=== PATIENT | male | born 1965 | race Caucasian/White ===

== ENCOUNTER 2023-04-30 12:22 | Outpatient (OUT) | payer OTHER, SELFPAY ==
--- NOTE | 2023-04-30 13:09 | CA_ITS ---
[facility] Test Date: 2023-04-30 Pat Name: JOSH ROB Department: Room: - Gender: Male Trial Paralegal: : 1965 Requested By: DAISY KARIMI Order Number: [id number] Reading MD: JAIME JEFFRIES Interpretive Statements Monophasic doppler waveforms PVR waveforms with delayed upstroke, blunted amplitude and loss of dicrotic notch Right: - significant pressure gradient between the brachial and thigh cuff - abnormal ZACK and TBI Left: - significant pressure gradient between the brachial and thigh cuff - significant pressure gradient between the thigh and calf cuff - abnormal ZACK and TBI Impression: - significant right inflow (femoral artery or above) arterial disease with moderate to severe hemodynamic impairment of the right lower extremity at rest (right ZACK 0.50) - significant left inflow (femoral artery or above) and femoropopliteal arterial disease with moderate to severe hemodynamic impairment of the left lower extremity at rest (left ZACK 0.52) Electronically Signed On 05-01-2023 14:46:43 EDT by JAIME JEFFRIES
== END 2023-04-30 12:23 | disposition home or self-care (01) ==
LOC: CARD 12:22
PROVIDERS: PCP Family Medicine; Visit Provider Family Medicine
DX: Z00.00 Encounter for general adult medical examination without abnormal findings (principal); I73.9 Peripheral vascular disease, unspecified
CPT/HCPCS: 93923

== ENCOUNTER 2023-05-18 09:18 | Outpatient (OUT) | payer OTHER, SELFPAY ==
--- NOTE | 2023-05-18 09:26 | CT_ITS ---
[address] [address] Patient Name: JOSH ROB MRN: [id number] date: 1965 Sex: M Assigned Patient Location: CT Current Patient Location: CT Accession/Order Number: [id number] Exam Date: 05/18/2023 09:37 Report Date: 05/18/2023 11:02 At the request of: DAISY KARIMI Procedure: CT lung screening low-dose EXAMINATION: CT lung screening low-dose HISTORY: Nicotine Dependence F17.210 COMPARISON: No relevant comparison available. TECHNIQUE: Axial, Coronal, and Sagittal images were created without the administration of IV contrast material. Dose reduction techniques were achieved by using automated exposure control and/or adjustment of mA and/or kV according to patient size and/or use of iterative reconstruction technique. FINDINGS: LUNGS: Biapical pleural parenchymal scarring. Mild to moderate centrilobular and paraseptal emphysema with an upper lobe predominance. Few scattered punctate pulmonary nodules measuring 2 mm. Bibasilar linear opacities likely atelectasis PLEURA: No mass, effusion, or pneumothorax. VASCULATURE: No abnormality. OLE: No mass or pathologic adenopathy. MEDIASTINUM: No mass or pathologic adenopathy. CARDIAC: No enlargement, pericardial thickening, or significant calcification. AORTA: No aneurysm or dissection. CHEST WALL: No mass or axillary adenopathy BONES: No bone lesion or fracture. LIMITED ABDOMEN: Surgical clips from cholecystectomy OTHER: Negative. CT/CT lung screening low-dose IMPRESSION: Mild to moderate emphysema with biapical pleural parenchymal scarring and scattered punctate pulmonary nodules LUNG SCREENING: Lung-RADS Category 2- Benign Appearance or Behavior. Nodules with a very low likelihood of becoming a clinically active cancer due to size or lack of growth. 2. Continue annual screening with LDCT in 12 months. Electronically authenticated by: SRAVANTHI RODRIGUES Date: 05/18/2023 11:02
== END 2023-05-18 09:19 | disposition home or self-care (01) ==
LOC: CT 09:18
PROVIDERS: PCP Family Medicine; Visit Provider Family Medicine
DX: F17.210 Nicotine dependence, cigarettes, uncomplicated (principal)
CPT/HCPCS: 71271

== ENCOUNTER 2024-04-03 08:51 | Outpatient (OUT) | payer OTHER, SELFPAY ==
--- NOTE | 2024-04-03 09:04 | VEIN_ITS ---
The [address] [address] Patient Name: JOSH ROB MRN: [id number] date: 1965 Sex: M Assigned Patient Location: Current Patient Location: Accession/Order Number: [id number] Exam Date: 04/03/2024 09:10 Report Date: 04/07/2024 10:18 At the request of: BRYAN MCKNIGHT Procedure: VC EXT Venous CELSO Limited EXAM: VC EXT Venous CELSO Limited HISTORY: PAD I73.9 COMPARISON: None. TECHNIQUE: Grayscale, color and Doppler FINDINGS: Right leg: Thrombus: None Flow: Normal Augmentation: Normal Compressibility: Normal Other: Portion of the popliteal artery is occluded Left leg: Thrombus: None Flow: Normal Augmentation: Normal Compressibility: Normal Other: Portion of the popliteal artery is occluded. Reflux identified in the great saphenous vein VEIN/VC EXT Venous CELSO Limited IMPRESSION: No deep or superficial vein thrombus identified in the legs Occlusion bilateral popliteal arteries Electronically authenticated by: SRAVANTHI RODRIGUES Date: 04/07/2024 10:18
--- NOTE | 2024-04-03 09:04 | VEIN_ITS ---
The [address] [address] Patient Name: JOSH ROB MRN: [id number] date: 1965 Sex: M Assigned Patient Location: Current Patient Location: Accession/Order Number: [id number] Exam Date: 04/03/2024 09:10 Report Date: 04/06/2024 07:49 At the request of: BRYAN MCKNIGHT Procedure: VC SEGMENTAL PRESSURES EXAM: VC SEGMENTAL PRESSURES HISTORY: PAD I73.9 , history of DVT, dislocation COMPARISON: None. FINDINGS: Segmental pressures presented as follows (right, left) in mmHg. 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, 84 1st Toe: 45, 51 ZACK: 0.67, 0.74 TBI: 0.39, 0.45 The ABIs are abnormal suggesting moderate arterial disease The TBI's are abnormally low suggesting arterial disease PVR waveforms: Right leg: Thigh: Normal Above knee: Mild peripheral arterial disease Below knee: Mild arterial disease Right ankle: Moderate peripheral arterial disease Left leg: Thigh: Normal Above knee: Normal Below knee: Moderate peripheral degenerative disease Right ankle: Moderate peripheral arterial disease VEIN/VC SEGMENTAL PRESSURES IMPRESSION: Findings suggest moderate bilateral peripheral arterial disease Electronically authenticated by: SRAVANTHI RODRIGUES Date: 04/06/2024 07:49
== END 2024-04-03 08:52 | disposition home or self-care (01) ==
PROVIDERS: PCP Family Medicine
DX: I73.9 Peripheral vascular disease, unspecified (principal); M79.606 Pain in leg, unspecified; M79.89 Other specified soft tissue disorders; I71.43 Infrarenal abdominal aortic aneurysm, without rupture
CPT/HCPCS: 93923; 93970

== ENCOUNTER 2024-06-02 09:27 | Outpatient (OUT) | payer OTHER, SELFPAY ==
--- NOTE | 2024-06-02 09:49 | CT_ITS ---
[address] [address] Patient Name: JOSH ORB MRN: [id number] date: 1965 Sex: M Assigned Patient Location: CT Current Patient Location: Accession/Order Number: [id number] Exam Date: 06/02/2024 09:55 Report Date: 06/05/2024 10:38 At the request of: DAISY KARIMI Procedure: CT lung screening low-dose EXAMINATION: CT lung screening low-dose HISTORY: Well Adult, Chronic Obstructive Pulmonary Disease COMPARISON: CT lung cancer screening 05/18/2023 TECHNIQUE: Axial, Coronal, and Sagittal images were created without the administration of IV contrast material. Dose reduction techniques were achieved by using automated exposure control and/or adjustment of mA and/or kV according to patient size and/or use of iterative reconstruction technique. FINDINGS: LUNGS: Mild emphysematous changes. Honeycombing scattered along the peripheral lung margins bilaterally favoring fibrosis. Stable appearance of a few tiny punctate nodules; no suspicious nodules. PLEURA: No mass, effusion, or pneumothorax. VASCULATURE: No abnormality. OLE: No mass or pathologic adenopathy. MEDIASTINUM: No mass or pathologic adenopathy. CARDIAC: No enlargement, pericardial thickening, or pericardial effusion. Coronary Artery calcifications: Coronary calcifications are absent. AORTA: No aneurysm or dissection. CHEST WALL: No mass or axillary adenopathy BONES: No bone lesion or fracture. LIMITED ABDOMEN: No suspicious findings. Limited images of the upper abdomen. OTHER: Negative. CT/CT lung screening low-dose IMPRESSION: 1. Lung-RADS Category 1 Negative. No nodules and definitely benign nodules. Continue annual screening with LDCT in 12 months. Electronically authenticated by: JOSE MANUEL MALIK Date: 06/05/2024 10:38
[2024-06-02 10:03] LABS: Basophils Absolute Auto 0.1 10^3/uL (0.0-0.1); Basophils Percent Auto 0.8 % (0.2-2.0); Eosinophils Absolute Auto 0.2 10^3/uL (0.0-0.7); Eosinophils Percent Auto 2.3 % (0.9-7.0); Hematocrit 46.6 % (42.0-54.0); Hemoglobin 15.2 g/dL (14.0-18.0); Immature Granulocytes Abs Auto 0.02 10^3/uL (0.00-0.03); Immature Granulocytes Pct Auto 0.2 % (0.0-0.5); Lymphocytes Absolute Auto 3.3 10^3/uL (1.2-3.8); Lymphocytes Percent Auto 35.8 % (20.5-60.0); Mean Corpuscular HGB Conc 32.6 g/dL (29.9-35.2); Mean Corpuscular Volume 88.9 fL (80.0-94.0); Mean Platelet Volume 10.4 fL (9.5-13.5); Monocytes Absolute Auto 0.7 10^3/uL (0.3-0.8); Monocytes Percent Auto 7.7 % (1.7-12.0); Neutrophils Percent Auto 53.2 % (43.0-75.0); Platelet Count 280 10^3/uL (150-450); Red Blood Count 5.24 10^6/uL (4.70-6.10); Red Cell Distribution Width 14.4 % (11.0-15.0); White Blood Count 9.3 10^3/uL (4.0-11.0)
[2024-06-02 10:56] LABS: Alanine Aminotransferase 41 U/L (16-63); Albumin Level 3.7 g/dL (3.4-5.0); Alkaline Phosphatase 95 U/L (46-116); Anion Gap 10.8; Aspartate Amino Transferase 18 U/L (15-37); BUN Creatinine Ratio 13.6; Bilirubin Total 0.6 mg/dL (0.2-1.0); Calcium 8.9 mg/dL (8.5-10.1); Carbon Dioxide 28.3 mmol/L (21.0-32.0); Chloride 102 mmol/L (98-107); Chol HDL Ratio 2.9; Cholesterol 118 mg/dL (<=200); Estimated GFR (African America >60 (>=60); Estimated GFR (Non-African Ame >60 (>=60); Free T3 2.38 pg/mL (2.18-3.98); Globulin 3.8 g/dL; Glucose 95 mg/dL (74-106); HDL Cholesterol 41 mg/dL (40-60); LDL Cholesterol Calculated 66.8 mg/dL; Potassium 4.1 mmol/L (3.5-5.1); Sodium 137 mmol/L (136-145); Thyroid Stimulating Hormone 0.637 uIU/mL (0.358-3.740); Total Protein 7.5 g/dL (6.4-8.2); Triglycerides 51 mg/dL (<=150); VLDL CHOLESTEROL 10.2 mg/dL
[2024-06-02 11:50] LABS: Estimated Average Glucose 108 mg/dL; Glycohemoglobin A1C 5.4 % (4.5-6.2)
[2024-06-02 12:06] LABS: Prostate Specific Antigen Scrn 0.82 ng/mL (<=4.00)
== END 2024-06-02 09:28 | disposition home or self-care (01) ==
LOC: CT 09:28
PROVIDERS: PCP Family Medicine; Visit Provider Family Medicine
DX: Z00.00 Encounter for general adult medical examination without abnormal findings (principal); F17.210 Nicotine dependence, cigarettes, uncomplicated
CPT/HCPCS: 36415; 71271; 80053; 80061; 83036; 84436; 84443; 84481; 85025; G0103

== ENCOUNTER 2025-04-11 08:42 | Outpatient (OUT) | payer OTHER, SELFPAY ==
--- OUTSIDE RECORDS SUMMARY | 2025-04-11 08:59 | XMS_ITS | CCD ---
Author Organization [facility] Care Team Providers Care Tailercpa Name Role Phone DR GERALD JUAREZ Admitting Unavailable SACHI, DR VILLA Primary Care Unavailable DR GERALD JUAREZ Attending Unavailable LARRY, DR DUARTE Consulting Unavailable SACHI, DR VILLA Primary Care Unavailable ADRIANA CUNNINGHAM Attending Unavailable ADRIANA CUNNINGHAM Consulting Unavailable ADRIANA CUNNINGHAM Admitting Unavailable SACHI, DR VILLA Attending Unavailable SACHI, DR VILLA Primary Care Unavailable SACHI, DR VILLA Admitting Unavailable TIGRE GRAFF F Attending Unavailable DAISY CHÁVEZ Referring Unavailable DAISY CHÁVEZ Primary Care Unavailable Daisy Chávez MD Primary Care Provider [phone] Daisy Chávez MD Primary Care Provider [phone] Allergies Allergy Classification Reported Allergen(s) Allergy Type Date of Onset Reaction(s) Facility (3 sources) Penicillins; Translations: [PENICILLINS] Drug allergy (disorder) 3 [facility] Repository (6 sources) Penicillins Propensity to adverse reactions to drug 1 [facility] Medications Current Medications Medication Drug Class(es) Dates Sig (Normalized) Sig (Original) apixaban 5 mg oral tablet (6 sources) Factor Xa Inhibitor Start: 06-08-2023 take 1 tablet by mouth in the morning, then take 1 tablet by mouth at bedtime ELIQUIS 5 mg tablet Take 1 tablet (5 mg total) by mouth in the morning and 1 tablet (5 mg total) before bedtime. 06/08/2023 Active aspirin 81 mg chewable tablet (7 sources) Platelet Aggregation Inhibitor, Nonsteroidal Anti-inflammatory Drug Start: 10-19-2024 aspirin 81 mg chewable tablet Indications: Severe claudication ([facility]-HCC) , Cigarette smoker , Bilateral carotid artery stenosis Chew 1 tablet (81 mg total) and swallow in the morning. 90 tablet 4 10/19/2024 Active take 1 tablet by mouth in the mo rning aspirin 81 mg Take 1 tablet (81 mg total) by mouth in the morning. Active atorvastatin 40 mg oral tablet (5 sources) HMG-CoA Reductase Inhibitor Start: 10-19-2024 take 1 tablet by mouth in the morning atorvastatin (LIPITOR) 40 mg tablet Indications: Severe claudication (CMS-HCC) , Cigarette smoker , Bilateral carotid artery stenosis Take 1 tablet (40 mg total) by mouth in the morning. 90 tablet 4 10/19/2024 Active Start: 04-13-2024 End: 04-17-2024 take 1 tablet by mouth in the morning atorvastatin (LIPITOR) 40 mg tablet Indications: Severe claudication (CMS-HCC) , Cigarette smoker Take 1 tablet (40 mg total) by mouth in the morning. 30 tablet 12 04/17/2024 Active Problems Active Problems Problem Classification Problem Date Documented Da te Episodic/Chronic Aortic; peripheral; and visceral artery aneurysms (2 sources) Aneurysm of infrarenal abdominal aorta ; Translations: [Infrarenal abdominal aortic aneurysm (AAA) without rupture ([facility]-HCC)] 03-20-2024 Chronic Occlusion or stenosis of precerebral arteries (3 sources) Bilateral stenosis of carotid arteries; Translations: [Occlusion and stenosis of bilateral carotid arteries] Onset: 10-19-2024 10-19-2024 Chronic Peripheral and visceral atherosclerosis (12 sources) Peripheral vascular disease, unspecified; Translations: [Intermittent claudication] Onset: 04-13-2024 10-19-2024 Chronic Residual codes; unclassified (1 source) Obstructive sleep apnea (adult) (pediatric); Translations: [OBSTRUCTIVE SLEEP APNEA] Onset: 08-11-2021 Chronic Substance-related disorders (10 sources) Nicotine dependence, cigarettes, uncomplicated; Translations: [Cigarette smoker ] Onset: 08-11-2021 10-19-2024 Chronic Unclassified (1 source) test result follow up Onset: 04-13-2024 Unclassified (1 source) Post-op Peripheral Arterial Bypass Onset: 04-13-2024 Past or Other Problems Problem Classification Problem Date Documented Da te Episodic/Chronic Nausea and vomiting (4 sources) Nausea with vomiting, unspecified; Translations: [NAUSEA WITH VOMITING UNSPECIFIED] Onset: 04-21-2021 Episodic Other aftercare (1 source) [facility] (current) use of anticoagulants; Translations: [GENERAL EDUCATION PROFESSOR CURRNT USE ANTICOAGULANTS] Onset: 08-11-2021 Episodic Other aftercare (1 source) Other termite exterminator helper (current) drug therapy; Translations: [OTH [facility] CURRENT DRUG THERAPY] Onset: 08-11-2021 Episodic Other connective tissue disease (2 sources) Pain in lower limb; Translations: [Pain in leg, unspecified] 10-10-2023 Episodic Other gastrointestinal disorders (1 source) Diarrhea, unspecified; Translations: [DIARRHEA UNSPECIFIED] Onset: 04-23-2021 Episodic Other skin disorders (3 sources) Rash and other nonspecific skin eruption; Translations: [RASH OTH NONSPECIFIC SKIN ERUPTION] Onset: 08-09-2021 Episodic Viral infection (1 source) Zoster without complications; Translations: [ZOSTER WITHOUT COMPLICATIONS] Onset: 08-11-2021 Episodic Results Test Name Value Interpretation Reference Range Facil ity AMYLASEon 04-21-2021 Amylase [Catalytic activity/Vol] 90 U/L Normal 31-110 [facility] Comment on above: Performed By: #### L IPA, CMP, RUPERT #### [facility] [address] [place], [place] [id number] [place] CBC AUTO DIFFon 04-21-2021 BASO # 0.1 103/ul Normal 0.0-0.1 [facility] Comment on above: Performed By: #### C BC #### [facility] [address] [place], [place] [id number] [place] Basophils/100 WBC (Bld) 0.7 % Normal 0.2-2.0 [facility] Comment on above: Performed By: #### C BC #### [facility] [address] [place], [place] [id number] [place] EO # 0.2 103/ul Normal 0.0-0.7 [facility] Comment on above: Performed By: #### C BC #### [facility] [address] [place], [place] [id number] [place] Eosinophils/100 WBC (Bld) 1.6 % Normal 0.9-7.0 [facility] Comment on above: Performed By: #### C BC #### [facility] [address] [place], [place] [id number] Tidinesh Carrillo Erythrocyte distribution width (RBC) [Ratio] 14.0 % Normal 11.0-15.0 [facility] Comment on above: Performed By: #### C BC #### [facility] [address] [place] [address] Tidinesh Carrillo Hematocrit (Bld) [Volume fraction] 50.7 % Normal 42.0-54.0 [facility] Comment on above: Performed By: #### C BC #### [facility] [address] [place] [address] [place] Hemoglobin (Bld) [Mass/Vol] 16.8 g/dL Normal 14.0-18.0 [facility] Comment on above: Performed By: #### C BC #### [facility] [address] [place] [address] Tidinesh Carrillo IG # 0.06 10e3/ul Critically high 0.00-0.03 [facility] Comment on above: Performed By: #### C BC #### [facility] [address] [place] [address] [place] IG % 0.4 % Normal 0.0-0.5 [facility] Comment on above: Performed By: #### C BC #### [facility] [address] [place] [address] [place] LYMPH # 3.6 103/ul Normal 1.2-3.8 [facility] Comment on above: Performed By: #### C BC #### [facility] [address] [place] [address] Ti Carrillo Lymphocytes/100 WBC (Bld) 25.5 % Normal 20.5-60.0 [facility] Comment on above: Performed By: #### C BC #### [facility] [address] [place], [place] [id number] Ti Carrillo MANUAL DIFF REQ NO Normal [facility] Comment on above: Performed By: #### C BC #### [facility] [address] [place] [address] Tidinesh Carrillo MCH (RBC) [Entitic mass] 29.6 pg Normal 25.9-34.0 [facility] Comment on above: Performed By: #### C BC #### [facility] [address] [id number] Ti Carrillo MCHC (RBC) [Mass/Vol] 33.1 g/dL Normal 29.9-35.2 [facility] Comment on above: Performed By: #### C BC #### [facility] [address] [id number] Ti Carrillo MCV (RBC) [Entitic vol] 89.4 fL Normal 80.0-94.0 [facility] Comment on above: Performed By: #### C BC #### [facility] [address] [id number] Ti Carrillo MONO # 1.3 103/ul Critically high 0.3-0.[address] [facility] Comment on above: Performed By: #### C BC #### [facility] [address] [place] [address] [place] Monocytes/100 WBC (Bld) 8.8 % Normal 1.7-12.0 [facility] Comment on above: Performed By: #### C BC #### [facility] [address] [place], [place] [id number] Ti Carrillo NEUT # 9.0 103/ul Critically high 1.4-6.[address] [facility] Comment on above: Performed By: #### C BC #### [facility] [address] [place], [place] [id number] [place] Neutrophils/100 WBC (Bld) 63.0 % Normal 43.0-75.0 [facility] Comment on above: Performed By: #### C BC #### [facility] [address] [place], [place] [id number] Tidinesh Carrillo Platelet mean volume (Bld) [Entitic vol] 10.1 fL Normal 9.5-13.5 [facility] Comment on above: Performed By: #### C BC #### [facility] [address] [id number] [place] PLT 308 103/ul Normal 150-450 [facility] Comment on above: Performed By: #### C BC #### [facility] [address] [id number] [place] RBC 5.67 106/ul Normal 4.70-6.10 [facility] Comment on above: Performed By: #### C BC #### [facility] [address] [id number] [place] WBC 14.3 103/ul Critically high 4.0-11.0 [facility] Comment on above: Performed By: #### C BC #### [facility] [address] [id number] [place] LIPASEon 04-21-2021 Lipase [Catalytic activity/Vol] 146.0 U/L Normal 23.0-300.0 [facility] Comment on above: Performed By: #### L IPA CMP, RUPERT #### [facility] [address] [place], [place] [id number] Ti Carrillo PROF 14(COMP METB)on 021 Albumin [Mass/Vol] 3.9 g/dL Normal 3.5-5.0 [facility] Comment on above: Performed By: #### L IPA CMP, RUPERT #### [facility] [address] [place], [place] [phone] Tidinesh Carrillo Albumin/Globulin [Mass ratio] 1.0 {ratio} Normal [facility] Comment on above: Performed By: #### L IPA, CMP, RUPERT #### [facility] [address] [place], [place] [phone] [place] ALP [Catalytic activity/Vol] 82 U/L Normal 38-126 [facility] Comment on above: Performed By: #### L IPA, CMP, RUPERT #### [facility] [address] [place], [place] [phone] [place] ALT [Catalytic activity/Vol] 32 U/L Normal 21-72 [facility] Comment on above: Performed By: #### L IPA, CMP, RUPERT #### [facility] [address] [place], [place] [phone] [place] Anion gap [Moles/Vol] 15.4 mmol/L Normal [facility] Comment on above: Performed By: #### L IPA, CMP, RUPERT #### [facility] [address] [place] [address] [place] AST [Catalytic activity/Vol] 23 U/L Normal 17-59 [facility] Comment on above: Performed By: #### L IPA, CMP, RUPERT #### [facility] [address] [place] [address] [place] Bilirubin [Mass/Vol] 0.7 mg/dL Normal 0.2-1.3 [facility] Comment on above: Performed By: #### L IPA, CMP, RUPERT #### [facility] [address] [place] [address] [place] Calcium [Mass/Vol] 8.2 mg/dL Critically low 8.4-10.2 [facility] Comment on above: Performed By: #### L IPA, CMP, RUPERT #### [facility] [address] [place] [address] [place] Chloride [Moles/Vol] 104 mmol/L Normal 98-107 [facility] Comment on above: Performed By: #### L IPA, CMP, RUPERT #### [facility] [address] [place] [address] [place] CO2 [Moles/Vol] 23.6 mmol/L Normal 22.0-30.0 [facility] Comment on above: Performed By: #### L IPA, CMP, RUPERT #### [facility] [address] [place] [address] [place] Creatinine [Mass/Vol] 1.01 mg/dL Normal 0.66-1.25 [facility] Comment on above: Performed By: #### L IPA, CMP, RUPERT #### [facility] [address] [place] [address] [place] EGFR-AF NIGERIAN >60 Normal >=60 [facility] Comment on above: Performed By: #### L IPA, CMP, RUPERT #### [facility] [address] [place] [address] [place] EGFR-NON AF NIGERIAN >60 Normal >=60 [facility] Comment on above: Performed By: #### L IPA CMP, RUPERT #### [facility] [address] [place] [address] [place] Globulin (S) [Mass/Vol] 3.8 g/dL Normal [facility] Comment on above: Performed By: #### L IPA CMP, RUPERT #### [facility] [address] [place] [address] [place] Glucose [Mass/Vol] 122 mg/dL Critically high 74-106 [facility] Comment on above: Performed By: #### L IPA CMP, RUPERT #### [facility] [address] [place] [address] [place] Potassium [Moles/Vol] 4.0 mmol/L Normal 3.4-5.0 [facility] Comment on above: Performed By: #### L IPA CMP, RUPERT #### [facility] [address] [place] [address] [place] Protein [Mass/Vol] 7.7 g/dL Normal 6.1-8.[address] [facility] Comment on above: Performed By: #### L PATRICK CMP, RUPERT #### [facility] [address] [place] [address] [place] Sodium [Moles/Vol] 139 mmol/L Normal 137-[address] [facility] Comment on above: Performed By: #### L IPA CMP, RUPERT #### [facility] [address] [place] [address] [place] Urea nitrogen [Mass/Vol] 14.0 mg/dL Normal 9.0-20.0 [facility] Comment on above: Performed By: #### L IPA CMP, RUPERT #### [facility] [address] [place] [address] [place] Urea nitrogen/Creatinine [Mass ratio] 13.9 mg/mg Normal [facility] Comment on above: Performed By: #### L IPA CMP, RUPERT #### [facility] [address] [place] [address] [place] Vital Signs Date Time Vital Sign Value Performing Clinician Facility 10-19-2024 09:03-0500 Body height 182 cm Tigre Graff MD Work Phone: [facility] 10-19-2024 09:03-0500 Body mass index (BMI) [Ratio] 32.86 kg/m2 Tigre Graff MD Work Phone: [facility] 10-19-2024 09:03-0500 Body temperature 96.91 [degF] Tigre Graff MD Work Phone: [facility] 10-19-2024 09:03-0500 Body weight 108.86 kg Tigre Graff MD Work Phone: [facility] 10-19-2024 09:03-0500 Diastolic blood pressure 74 mm[Hg] Tigre Graff MD Work Phone: [facility] 10-19-2024 09:03-0500 Heart rate 63 /min Tigre Graff MD Work Phone: [facility] 10-19-2024 09:03-0500 Respiratory rate 18 /min Tigre Graff MD Work Phone: [facility] 10-19-2024 09:03-0500 SaO2% (BldA) [Mass fraction] 96 % Tigre Graff MD Work Phone: [facility] 10-19-2024 09:03-0500 Systolic blood pressure 132 mm[Hg] Tigre Graff MD Work Phone: [facility] 04-13-2024 11:19-0400 Diastolic blood pressure 73 mm[Hg] Tigre Graff MD Work Phone: [facility] 04-13-2024 11:19-0400 Systolic blood pressure 115 mm[Hg] Tigre Graff MD Work Phone: [facility] 04-13-2024 11:18-0400 Body height 182.9 cm Tigre Graff MD Work Phone: [facility] 04-13-2024 11:18-0400 Body mass index (BMI) [Ratio] 32.55 kg/m2 Tigre Graff MD Work Phone: [facility] 04-13-2024 11:18-0400 Body weight 108.86 kg Tigre Graff MD Work Phone: [facility] 04-13-2024 11:18-0400 Heart rate 70 /min Tigre Graff MD Work Phone: [facility] 04-13-2024 11:18-0400 SaO2% (BldA) [Mass fraction] 95 % Tigre Graff MD Work Phone: [facility] 09-30-2023 16:15-0500 Diastolic blood pressure 66 mm[Hg] Murray Pearson MD Work Phone: [facility] 09-30-2023 16:15-0500 Heart rate 64 /min Murray Pearson MD Work Phone: [facility] 09-30-2023 16:15-0500 Systolic blood pressure 110 mm[Hg] Murray Pearson MD Work Phone: [facility] 09-30-2023 16:14-0500 Body height 182.9 cm Murray Perason MD Work Phone: [facility] 09-30-2023 16:14-0500 Body mass index (BMI) [Ratio] 33.09 kg/m2 Murray Pearson MD Work Phone: [facility] 09-30-2023 16:14-0500 Body weight 110.68 kg Murray Pearson MD Work Phone: [facility] 09-30-2023 16:14-0500 Respiratory rate 18 /min Murray Pearson MD Work Phone: [facility] Encounters Encounter Date Encounter Type Care Provider Facility Start: 10-19-2024 End: 10-19-2024 Office outpatient visit 25 minutes Tigre Graff MD Work Phone: [facility] Comment on above: Severe claudication (CMS-HCC) (Primary Dx); Cigarette smoker; Bilateral carotid artery stenosis Start: 04-17-2024 End: 04-17-2024 Telephone encounter Tigre Graff MD Work Phone: [facility] Start: 04-13-2024 End: 04-13-2024 Office outpatient visit 25 minutes Tigre Graff MD Work Phone: [facility] Comment on above: Severe claudication (CMS-HCC) (Primary Dx); Cigarette smoker Start: 04-13-2024 ambulatory TIGRE GRAFF [facility] Start: 04-04-2024 End: 04-04-2024 Orders Only Kaylie Curtis SUSTAINABILITY PURCHASING AGENT [facility] Comment on above: Pain and swelling of lower extremity, unspecified laterality (Primary Dx); Claudication (CMS-HCC); Infrarenal abdominal aortic aneurysm (AAA) without rupture (CMS-HCC) Start: 03-20-2024 End: 03-20-2024 Orders Only Elizabeth Tom SUSTAINABILITY PURCHASING AGENT [facility] Comment on above: Infrarenal abdominal aortic aneurysm (AAA) without rupture (CMS-HCC) (Primary Dx); Intermittent claudication (CMS-HCC) Start: 09-30-2023 End: 09-30-2023 Office outpatient visit 25 minutes Murray Pearson MD Work Phone: [facility] Comment on above: PAD (peripheral jorge ry disease) (CMS-HCC) (Primary Dx); Claudication (CMS-HCC); Pain and swelling of lower extremity, unspecified laterality Start: 03-18-[address] DAISY CHÁVEZ Facility :[facility] Start: 08-09-2021 End: 08-09-[address] GERALD JUAREZ Facility:[facility] Start: 04-21-2021 End: 04-21-[address] DAISY CHÁVEZ Facility:[facility] Plan of Treatment Date Care Activity Detail Author Start: 10-13-2025 Tobacco Counseling Tobacco Counselin g [facility] Start: 04-13-2025 Adult BMI Screening Adult BMI Screen ing [facility] Start: 04-13-2025 Tobacco Screening Tobacco Screening [facility] Start: 10-19-2024 End: 10-19-2025 US Carotid arteries - bilateral Vas carotid duplex bilateral Vascular Ultrasound Routine Cigarette smoker Bilateral carotid artery stenosis Expected: 10/19/2024, Expires: 10/19/2025 [facility] Comment on above: Expected: 10/19/2024 , Expires: 10/19/2025 Start: 10-19-2024 End: 10-19-2025 US.doppler Extremity arteries - bilateral for physiologic artery study Vas art doppler lwr bilat mult lev/PVR Vascular Ultrasound Routine Severe claudication ([facility]-HCC) Cigarette smoker Expected: 10/19/2024, Expires: 10/19/2025 [employer] Work Phone: Comment on above: Expected: 10/19/2024 , Expires: 10/19/2025 Start: 10-19-2024 End: 10-19-2024 Patient encounter procedure 10/19/2024 8:30 AM EST Office Visit [facility] [place] [address] Tigre Graff MD [address], [address] [address] [facility] Start: 09-30-2024 Adult BMI Screening Adult BMI Screen ing [facility] Start: 06-18-2024 COVID-19 Vaccine ( season) COVID-19 Vaccine ( season) [facility] Start: 06-18-2024 Influenza vaccination Influenza Vacc ine [facility] Start: 04-13-2024 End: 04-13-2024 Patient encounter procedure [facility] Start: 04-04-2024 End: 04-04-2025 US.doppler Lower extremity vein - bilateral Vas venous duplex lwr bilateral Vascular Ultrasound Routine Pain and swelling of lower extremity, unspecified laterality Claudication ([facility]-HCC) Infrarenal abdominal aortic aneurysm (AAA) without rupture ([facility]-HCC) Expected: 04/04/2024, Expires: 04/04/2025 [employer] Work Phone: Comment on above: Expected: 04/04/2024 , Expires: 04/04/2025 Start: 03-21-2024 End: 03-21-2024 Patient encounter procedure [facility] Start: 03-20-2024 End: 03-20-2025 US.doppler Lower extremity vein - bilateral Vas venous duplex lwr bilateral Vascular Ultrasound Routine Infrarenal abdominal aortic aneurysm (AAA) without rupture (CMS-HCC) Intermittent claudication (CMS-HCC) Expected: 03/20/2024, Expires: 03/20/2025 [employer] Work Phone: Comment on above: Expected: 03/20/2024 , Expires: 03/20/2025 Start: 10-10-2023 End: 10-10-2024 US.doppler Extremity arteries - bilateral for physiologic artery study Vas art doppler lwr bilat mult lev/PVR Vascular Ultrasound Routine PAD (peripheral artery disease) (CMS-HCC) Claudication (CMS-HCC) Pain and swelling of lower extremity, unspecified laterality Expected: 10/10/2023, Expires: 10/10/2024 [facility] Work Phone: Comment on above: Expected: 10/10/2023 , Expires: 10/10/2024 Start: 10-10-2023 End: 10-10-2024 US.doppler Lower extremity vein - bilateral Vas venous duplex lwr bilateral Vascular Ultrasound Routine PAD (peripheral artery disease) (CMS-HCC) Claudication (CMS-HCC) Pain and swelling of lower extremity, unspecified laterality Expected: 10/10/2023, Expires: 10/10/2024 [facility] Comment on above: Expected: 10/10/2023 , Expires: 10/10/2024 Start: 06-18-2023 COVID-19 Vaccine () COVID-19 Vaccine () [facility] Start: 06-18-2023 COVID-19 Vaccine () COVID-19 Vaccine () [facility] Start: 06-18-2023 Influenza vaccination Influenza Vacc ine [facility] Start: 2014 Administration of varicella zoster vaccine Zoster (Shingles) Vaccine (1 of 2) [facility] Start: 1983 DTaP,Tdap and Td Vac cines (1 - Tdap) DTaP,Tdap and Td Vaccines (1 - Tdap) [facility] Start: 1982 Adult BMI Follow Up Plan Adult BMI Follow Up Plan [facility] Start: 1976 Depression Screening Depression Scre ening [facility] Start: 1976 Tobacco Screening Tobacco Screening [facility] Immunizations Immunization Date Immunization Notes Care Provider Fa cility 08-15-2021 influenza virus vaccine, unspecified formulation Murray Pearson MD Work Phone: [facility] Payers Date Payer Category Payer Commercial Managed C are - POS [employer]ET[employer] [id number] 2011 Private Health Insurance AETNA A ETNA POS II [id number] 2011-Present [phone] [facility] [id number] [place] [id number] 1964 Unknown [id number] 1964 Unknown [id number] 1964 Unknown [id number] 1964 Unknown [id number] 1959 Private Health Insurance [id number] 1960 Self-pay [id number] Social History Date Type Detail Facility Start: 10-18-1983 [facility] Start: 10-18-1983 History of tobacco use Cigarette Smo ker [facility] Start: 03-27-2019 End: 04-13-2024 Cigarettes smoked current (pack per day) - Reported 1 [facility] Start: 04-13-2024 Tobacco use and exposure Smokeless tobacco non-user [facility] Start: 04-13-2024 Alcoholic beverage intake Defer [facility] Start: 03-27-2019 End: 04-13-2024 Tobacco use panel [facility] Childcare Unknown [facility] Start: 1965 Sex assigned at Not on file P [facility] Start: 05-21-2015 Sex Male (finding) [facility] Start: 06-10-2023 Tobacco smoking stat [facility] Never smoked tobacco [facility] Clinical Notes 09-30-2023 to 10-19-2024 Assessment & Plan Note - Tigre Graff MD - 10/19/2024 9:17 AM ESTAssessment & Plan Note - Tigre Graff MD - 10/19/2024 9:17 AM ESTTigre Graff MD - 10/19/2024 9:00 AM EST Note Date & Type Note Facility 10-19-2024 Evaluation + Plan note Associated Problem(s): Cigarette smoker Counseled him on smoking cessation for at least 3 minutes [facility] 10-19-2024 Evaluation + Plan note Associated Problem(s): Severe claudication ([facility]-HCC) Aspirin statin walking and risk factors modification. Smoking cessation. [facility] 10-19-2024 Evaluation + Plan note Associated Problem(s): Bilateral carotid artery stenosis Aspirin and atorvastatin. Carotid duplex ultrasound in 6 months [facility] 10-19-2024 Miscellaneous Notes Associate d Problem(s): Cigarette smoker Counseled him on smoking cessation for at least 3 minutes Associated Problem(s): Severe claudication (CMS-HCC) Aspirin statin walking and risk factors modification. Smoking cessation. Associated Problem(s): Bilateral carotid artery stenosis Aspirin and atorvastatin. Carotid duplex ultrasound in 6 months documented in this encounter [facility] 10-19-2024 History of Presen t illness Narrative Images from the original note were not included. To: DAISY CHÁVEZ MD HPI: Maciej Hartman is a 59 y.o. male with Longstanding smoking history and multiple vascular bed occlusive disease. He has significant claudication. He is not taking his medications regularly. He continues to smoke. He does not have rest pain or tissue loss. Had a long discussion about risk factors modification best medical therapy and supervised walking program. He will walk but he will not do the supervised walking program. He also have carotid stenosis and retrograde flow in his right vertebral artery and at duplex ultrasound of his more than a year ago. I discussed getting duplex ultrasound. I had a long discussion about smoking cessation for at least 3 minutes.. Review of Systems: Review of Systems Constitutional: Negative. HENT: Negative. Respiratory: Negative. Cardiovascular: Negative. Gastrointestinal: Negative. Endocrine: Negative. Genitourinary: Negative. Musculoskeletal: Negative. Skin: Negative. Neurological: Negative. Hematological: Negative. Medications: Current Outpatient Medications on File Prior to Visit Medication Sig Dispense Refill aspirin 81 mg Take 1 tablet (81 mg total) by mouth in the morning. atorvastatin (LIPITOR) 40 mg tablet Take 1 tablet (40 mg total) by mouth in the morning. 30 tablet 12 ELIQUIS 5 mg tablet Take 1 tablet (5 mg total) by mouth in the morning and 1 tablet (5 mg total) before bedtime. No current facility-administered medications on file prior to visit. Past Medical History: Past Medical History: Diagnosis Date Deep vein thrombosis ([facility]-HCC) Past Surgical History: Past Surgical History: Procedure Laterality Date CHOLECYSTECTOMY Social and Family History: Social History Socioeconomic History Marital status: Spouse name: Not on file Number of children: Not on file Years of education: Not on file Highest education level: Not on file Occupational History Not on file Tobacco Use Smoking status: Every Day Current packs/day: 1.00 Average packs/day: 1 pack/day for 41.0 years (41.0 ttl pk-yrs) Types: Cigarettes Start date: 1983 Smokeless tobacco: Never Substance and Sexual Activity Alcohol use: Defer Alcohol/week: 1.0 standard drink of alcohol Types: 1 Standard drinks or equivalent per week Drug use: Defer Sexual activity: Not on file Other Topics Concern Not on file Social History Narrative Not on file Social Drivers of Health Financial Resource Strain: Not on file Food Insecurity: No Food Insecurity (10/19/2024) Hunger Screening Food Insecurity - Worry: Never True Food Insecurity - Inability: Never True Transportation Needs: Not on file Physical Activity: Not on file Stress: Not on file Social Connections: Not on file Interpersonal Safety: Not on file Housing Instability: Not on file No family history on file. Recent Labs: Recent and relative labs were reviewed and interpreted and contributed to the assessment and plan below. Vitals: BP 132/74 (BP Site: Left Arm, BP Postition: Sitting, BP CUFF SIZE: M (9-13 inches)) Pulse 63 Temp 36.1 C (96.9 F) (Temporal) Resp 18 Ht 182 cm (5' 11.65 ) Wt 108.9 kg (240 lb) SpO2 96% BMI 32.86 kg/m Body mass index is 32.86 kg/m . Physical Exam: Physical Exam Constitutional: Appearance: Normal appearance. HENT: Head: Normocephalic and atraumatic. Mouth/Throat: Mouth: Mucous membranes are moist. Eyes: Extraocular Movements: Extraocular movements intact. Pupils: Pupils are equal, round, and reactive to light. Cardiovascular: Rate and Rhythm: Normal rate and regular rhythm. Pulmonary: Effort: Pulmonary effort is normal. Breath sounds: Normal breath sounds. Abdominal: General: Abdomen is flat. Bowel sounds are normal. Palpations: Abdomen is soft. Musculoskeletal: General: Normal range of motion. Cervical back: Normal range of motion. Skin: General: Skin is warm and dry. Neurological: General: No focal deficit present. Mental Status: He is alert and oriented to person, place, and time. Mental status is at baseline. Psychiatric: Mood and Affect: Mood normal. Behavior: Behavior normal. Thought Content: Thought content normal. Judgment: Judgment normal. Recent testing: Assessment and Plan: Problem List Severe claudication (CMS-HCC) - Primary Current Assessment & Plan Aspirin statin walking and risk factors modification. Smoking cessation. Cigarette smoker Current Assessment & Plan Counseled him on smoking cessation for at least 3 minutes Bilateral carotid artery stenosis Current Assessment & Plan Aspirin and atorvastatin. Carotid duplex ultrasound in 6 months Maciej was seen today for *severe claudication 6 month follow up no testing . Diagnoses and all orders for this visit: Severe claudication (CMS-HCC) Cigarette smoker Bilateral carotid artery stenosis Tigre Graff MD, JOSE RAMON, RPVI, FSVS, FACS [facility] [employer] This note was created with the assistance of a speech recognition program. While intending to generate a timely document that accurately reflects the content of the visit, no guarantee can be provided that every grammatical or spelling mistake has been or will be identified or corrected. Thank you for your understanding. documented in this encounter [facility] [employer] [facility] 10-19-2024 Instructions Tigre Graff MD - 10/19/2024 9:00 AM EST Are You Ready To Kick The Habit? Free Tobacco Cessation Resources [facility] Services [facility] provide all employees with free tobacco cessation services that include: Counseling to understand nicotine addiction Education about medications that can help you successfully quit Assistance with developing a plan to quit Call to set up an individual appointment or find out when group classes will be held: [facility]: [phone] [facility]: [phone] [facility]: [phone] [facility]: [phone] Quit Smoking Action Plan and Resources [facility] offers an eight-week, online smoking cessation plan to all [facility] employees, regardless of whether [place] is your medical insurance provider. Go to www.[employer].[email or web address]/employeewe llness and click the Health Risk Assessment and Resources link to get started. In the Gcwky1Awdudi menu, click Action Plans instead of Health Risk Assessment to access the Quit Smoking Action Plan. Additional smoking cessation resources are also available to all [facility] employees on the Zutng2Yfwuwm web page at www.[employer]/leticia pedraza. [place] Tobacco Cessation Program If [place] is your medical insurance provider, there are more free resources available to you, including: No copays or deductibles on local tobacco cessation counseling services to help you quit Prescription assistance for tobacco cessation medications to help you quit For details about the tobacco cessation program available to [place] members, go to www.Addictive.Webydo. (Search: Tobacco Cessation Program). [place] Tobacco Quit Line 2-768-ZWUO-NOW ( ) is a toll-free, telephonic service that helps [place] residents quit smoking and using tobacco. It is staffed by experts who tailor a quit plan for you and provide you with advice. [place] Tobacco Quit Line 1-581-SBPF-NOW ( ) is a toll-free, telephonic service that helps [place] residents quit smoking and using tobacco. It is staffed by experts who tailor a quit plan for you and provide you with advice. Two weeks of nicotine replacement therapy may be provided at no charge, if needed. Additional Resources These national organizations also offer free information and resources to help you quit tobacco: [place] Cancer Society--www.cancer.org/health y/stayawayfromtobacco [place] Heart Association--www.heart.org (Search: Quit Smoking) Centers for Disease Control and Prevention--www.cdc.gov/tobacc o [place] Lung Association--www.lungusa.org documented in this encounter [facility] 04-17-2024 Miscellaneous Notes Formattin g of this note might be different from the original. Patient need a prescription for his Lipitor which was not called in to his Pharmacy [facility] [place] Medication has just been sent to requested pharmacy. The original script went to print instead of being routed to a pharmacy. documented in this encounter [facility] 04-17-2024 Telephone encount er Note Patient need a prescription for his Lipitor which was not called in to his Pharmacy [facility] in [place] [facility] 04-17-2024 Telephone encount er Note Medication has just been sent to requested pharmacy. The original script went to print instead of being routed to a pharmacy. [facility] 04-13-2024 Evaluation + Plan note Associated Problem(s): Cigarette smoker Counseled on smoking cessation for at least 4 minutes [facility] 04-13-2024 Miscellaneous Notes Associate d Problem(s): Cigarette smoker Counseled on smoking cessation for at least 4 minutes Associated Problem(s): Severe claudication (CMS-HCC) Aspirin and atorvastatin. Supervised walking program. He is pretty active and he walks a lot at work and he is planning to do walking on his own. documented in this encounter [facility] 04-13-2024 Evaluation + Plan note Associated Problem(s): Severe claudication ([facility]) Aspirin and atorvastatin. Supervised walking program. He is pretty active and he walks a lot at work and he is planning to do walking on his own. [facility] 04-13-2024 History of Presen t illness Narrative Images from the original note were not included. To: DAISY CHÁVEZ MD HPI: Maciej Hartman is a 59 y.o. male with bilateral lower extremity claudication. He is moderate reduction in his ZACK bilaterally. He is active smoker. I counseled him on smoking cessation in length. He is going to work on quitting. I offered him supervised walking program. He does not want to enroll in the program. Takes aspirin but he does not take statin.. I recommended adding statin.. Review of Systems: Review of Systems Constitutional: Negative. HENT: Negative. Respiratory: Negative. Cardiovascular: Negative. Gastrointestinal: Negative. Endocrine: Negative. Genitourinary: Negative. Musculoskeletal: Negative. Skin: Negative. Neurological: Negative. Hematological: Negative. Medications: Current Outpatient Medications on File Prior to Visit Medication Sig Dispense Refill aspirin 81 mg Take 1 tablet (81 mg total) by mouth in the morning. ELIQUIS 5 mg tablet Take 1 tablet (5 mg total) by mouth in the morning and 1 tablet (5 mg total) before bedtime. No current facility-administered medications on file prior to visit. Past Medical History: Past Medical History: Diagnosis Date Deep vein thrombosis ([facility]) Past Surgical History: Past Surgical History: Procedure Laterality Date CHOLECYSTECTOMY Social and Family History: Social History Socioeconomic History Marital status: Spouse name: Not on file Number of children: Not on file Years of education: Not on file Highest education level: Not on file Occupational History Not on file Tobacco Use Smoking status: Every Day Current packs/day: 1.00 Average packs/day: 1 pack/day for 40.5 years (40.5 ttl pk-yrs) Types: Cigarettes Start date: 1983 Smokeless tobacco: Never Substance and Sexual Activity Alcohol use: Defer Alcohol/week: 1.0 standard drink of alcohol Types: 1 Standard drinks or equivalent per week Drug use: Defer Sexual activity: Not on file Other Topics Concern Not on file Social History Narrative Not on file Social Determinants of Health Financial Resource Strain: Not on file Food Insecurity: No Food Insecurity (04/13/2024) Hunger Screening Food Insecurity - Worry: Never True Food Insecurity - Inability: Never True Transportation Needs: Not on file Physical Activity: Not on file Stress: Not on file Social Connections: Not on file Interpersonal Safety: Not on file Housing Instability: Not on file History reviewed. No pertinent family history. Recent Labs: Recent and relative labs were reviewed and interpreted and contributed to the assessment and plan below. Vitals: BP 115/73 (BP Site: Right Arm, BP Postition: Sitting, BP CUFF SIZE: M (9-13 inches)) Pulse 70 Ht 182.9 cm (6') Wt 108.9 kg (240 lb) SpO2 95% BMI 32.55 kg/m Body mass index is 32.55 kg/m . Physical Exam: Physical Exam Constitutional: Appearance: Normal appearance. HENT: Head: Normocephalic and atraumatic. Mouth/Throat: Mouth: Mucous membranes are moist. Eyes: Extraocular Movements: Extraocular movements intact. Pupils: Pupils are equal, round, and reactive to light. Cardiovascular: Rate and Rhythm: Normal rate and regular rhythm. Pulmonary: Effort: Pulmonary effort is normal. Breath sounds: Normal breath sounds. Abdominal: General: Abdomen is flat. Bowel sounds are normal. Palpations: Abdomen is soft. Musculoskeletal: General: Normal range of motion. Cervical back: Normal range of motion. Skin: General: Skin is warm and dry. Neurological: General: No focal deficit present. Mental Status: He is alert and oriented to person, place, and time. Mental status is at baseline. Psychiatric: Mood and Affect: Mood normal. Behavior: Behavior normal. Thought Content: Thought content normal. Judgment: Judgment normal. Recent testing: PVR Assessment and Plan: Problem List Severe claudication (CMS-HCC) - Primary Current Assessment & Plan Aspirin and atorvastatin. Supervised walking program. He is pretty active and he walks a lot at work and he is planning to do walking on his own. Relevant Medications atorvastatin (LIPITOR) 40 mg tablet Cigarette smoker Current Assessment & Plan Counseled on smoking cessation for at least 4 minutes Relevant Medications atorvastatin (LIPITOR) 40 mg tablet Maciej was seen today for test result follow up and post-op peripheral arterial bypass. Diagnoses and all orders for this visit: Severe claudication ([facility]-HCC) - atorvastatin (LIPITOR) 40 mg tablet; Take 1 tablet (40 mg total) by mouth in the morning. Cigarette smoker - atorvastatin (LIPITOR) 40 mg tablet; Take 1 tablet (40 mg total) by mouth in the morning. Tigre Graff MD, JOSE RAMON, RPVI, FSVS, FACS [facility] [employer] This note was created with the assistance of a speech recognition program. While intending to generate a timely document that accurately reflects the content of the visit, no guarantee can be provided that every grammatical or spelling mistake has been or will be identified or corrected. Thank you for your understanding. documented in this encounter [facility] 04-13-2024 Instructions Tigre Graff MD - 04/13/2024 11:30 AM EDT Are You Ready To Kick The Habit? Free Tobacco Cessation Resources [facility] Services [facility] provide all employees with free tobacco cessation services that include: Counseling to understand nicotine addiction Education about medications that can help you successfully quit Assistance with developing a plan to quit Call to set up an individual appointment or find out when group classes will be held: [facility]: [phone] [facility]: [phone] [facility]: [phone] [facility]: [phone] Quit Smoking Action Plan and Resources [facility] offers an eight-week, online smoking cessation plan to all [facility] employees, regardless of whether [place] is your medical insurance provider. Go to www.[employer].org/employeewe llness and click the Health Risk Assessment and Resources link to get started. In the Atrqx7Euynfd menu, click Action Plans instead of Health Risk Assessment to access the Quit Smoking Action Plan. Additional smoking cessation resources are also available to all [facility] employees on the Cvdsi7Jqgsrn web page at www.[employer]ict[employer].Webydo./leticia pedraza. [place] Tobacco Cessation Program If [place] is your medical insurance provider, there are more free resources available to you, including: No copays or deductibles on local tobacco cessation counseling services to help you quit Prescription assistance for tobacco cessation medications to help you quit For details about the tobacco cessation program available to [place] members, go to www.Addictive.Webydo. (Search: Tobacco Cessation Program). [place] Tobacco Quit Line 3-378-BPZQ-NOW ( ) is a toll-free, telephonic service that helps [place] residents quit smoking and using tobacco. It is staffed by experts who tailor a quit plan for you and provide you with advice. [place] Tobacco Quit Line 8-677-QRBB-NOW ( ) is a toll-free, telephonic service that helps [place] residents quit smoking and using tobacco. It is staffed by experts who tailor a quit plan for you and provide you with advice. Two weeks of nicotine replacement therapy may be provided at no charge, if needed. Additional Resources These national organizations also offer free information and resources to help you quit tobacco: [place] Cancer Society--www.cancer.org/health y/stayawayfromtobacco [place] Heart Association--www.heart.org (Search: Quit Smoking) Centers for Disease Control and Prevention--www.cdc.gov/tobacc o [place] Lung Association--www.lungusa.org Are You Ready To Kick The Habit? Free Tobacco Cessation Resources [facility] Services [facility] provide all employees with free tobacco cessation services that include: Counseling to understand nicotine addiction Education about medications that can help you successfully quit Assistance with developing a plan to quit Call to set up an individual appointment or find out when group classes will be held: [facility]: [phone] [facility]: [phone] [facility]: [phone] [facility]: [phone] Quit Smoking Action Plan and Resources [facility] offers an eight-week, online smoking cessation plan to all [facility] employees, regardless of whether [place] is your medical insurance provider. Go to www.[employer].org/employeewe llness and click the Health Risk Assessment and Resources link to get started. In the SkyStem menu, click Action Plans instead of Health Risk Assessment to access the Quit Smoking Action Plan. Additional smoking cessation resources are also available to all [facility] employees on the [employer] web page at www.[employer]/leticia pedraza. [place] Tobacco Cessation Program If [place] is your medical insurance provider, there are more free resources available to you, including: No copays or deductibles on local tobacco cessation counseling services to help you quit Prescription assistance for tobacco cessation medications to help you quit For details about the tobacco cessation program available to [place] members, go to www.[employer] (Search: Tobacco Cessation Program). [place] Tobacco Quit Line 1-513-VCGW-NOW ( ) is a toll-free, telephonic service that helps [place] residents quit smoking and using tobacco. It is staffed by experts who tailor a quit plan for you and provide you with advice. [place] Tobacco Quit Line 5-616-FBYK-NOW ( ) is a toll-free, telephonic service that helps [place] residents quit smoking and using tobacco. It is staffed by experts who tailor a quit plan for you and provide you with advice. Two weeks of nicotine replacement therapy may be provided at no charge, if needed. Additional Resources These national organizations also offer free information and resources to help you quit tobacco: [place] Cancer Society--www.cancer.org/health y/stayawayfromtobacco [place] Heart Association--www.heart.org (Search: Quit Smoking) Centers for Disease Control and Prevention--www.cdc.gov/tobacc o [place] Lung Association--www.lungusa.org documented in this encounter [employer] [facility] 09-30-2023 History of Presen t illness Narrative CHIEF COMPLAINT: Chief Complaint Patient presents with Follow-up 6 week follow up with no testing. HISTORY OF PRESENT ILLNESS: Maciej Hartman is a 58 y.o. male who presents to the office today for evaluation of Lower extremity pain and swelling. Reports that he has pain when he walks about 2 blocks distance. At rest patient has no pain. Patient has swelling in the lower extremities. Patient reports that the swelling is minimal in the morning but then gets worse during the day and at the end of the day. Patient currently is on aspirin and Eliquis. Patient denies any discoloration or wounds on his lower extremities. Patient denies any chest pain or shortness breath. Patient otherwise has no other complaints. ALLERGIES: Allergies Allergen Reactions Penicillins MEDICATIONS: Current Outpatient Medications Medication Sig Dispense Refill aspirin 81 mg Take 1 tablet (81 mg total) by mouth in the morning. ELIQUIS 5 mg tablet Take 1 tablet (5 mg total) by mouth in the morning and 1 tablet (5 mg total) before bedtime. No current facility-administered medications for this visit. SOCIAL HISTORY: Social History Tobacco Use Smoking status: Never Smokeless tobacco: Not on file Substance Use Topics Alcohol use: Not on file REVIEW OF SYSTEMS: Review of Systems Constitutional: Negative for activity change, appetite change, chills, fatigue, fever and unexpected weight change. HENT: Negative for facial swelling and trouble swallowing. Eyes: Negative for visual disturbance. Respiratory: Negative for chest tightness and shortness of breath. Cardiovascular: Positive for leg swelling. Negative for chest pain. Gastrointestinal: Negative for abdominal pain. Genitourinary: Negative for flank pain and frequency. Musculoskeletal: Positive for arthralgias and back pain. Negative for joint swelling. Skin: Positive for color change. Negative for pallor, rash and wound. Neurological: Negative for dizziness, syncope, facial asymmetry, speech difficulty, weakness, light-headedness and numbness. Hematological: Negative for adenopathy. PHYSICAL EXAM: Physical Exam Vitals reviewed. Constitutional: General: He is not in acute distress. Neck: Vascular: No JVD. Cardiovascular: Rate and Rhythm: Normal rate. Pulses: Radial pulses are 2+ on the right side and 2+ on the left side. Dorsalis pedis pulses are detected w/ doppler on the right side and detected w/ doppler on the left side. Posterior tibial pulses are detected w/ doppler on the right side and detected w/ doppler on the left side. Heart sounds: No murmur heard. Comments: No carotid bruits. Pulmonary: Breath sounds: Normal breath sounds. Abdominal: Palpations: Abdomen is soft. There is no mass. Tenderness: There is no abdominal tenderness. Musculoskeletal: General: No tenderness. Cervical back: Neck supple. Right lower leg: Edema present. Left lower leg: Edema present. Skin: General: Skin is warm. Coloration: Skin is not pale. Findings: No erythema. Neurological: Mental Status: He is alert and oriented to person, place, and time. VASCULAR EXAM: Vascular: Right Lower Extremity Right lower extremity pulses DP: detected w/ doppler Doppler findings: biphasic PT: detected w/ doppler Doppler findings: biphasic Right lower extremity edema: 1+ and pitting Left Lower Extremity Left lower extremity pulses DP: detected w/ doppler Doppler findings: biphasic PT: detected w/ doppler Doppler findings: biphasic Left lower extremity edema: 1+ and pitting Right Upper Extremity Right upper extremity pulses Radial: 2+ Left Upper Extremity Left upper extremity pulses Radial: 2+ ASSESSMENT AND PLAN: Maciej was seen today for follow-up. Diagnoses and all orders for this visit: PAD (peripheral artery disease) ([facility]) - Vas art doppler lwr bilat mult lev/PVR; Future - Vas venous duplex lwr bilateral; Future Claudication ([facility]) - Vas art doppler lwr bilat mult lev/PVR; Future - Vas venous duplex lwr bilateral; Future Pain and swelling of lower extremity, unspecified laterality - Vas art doppler lwr bilat mult lev/PVR; Future - Vas venous duplex lwr bilateral; Future Patient appears to have stable claudications. Patient is on antiplatelets therapy and anticoagulation. I will order lower extremity arterial Dopplers and venous duplex. I will see him back in few weeks for follow-up. documented in this encounter [facility] Evaluation note Diagnosis Severe claudication ([facility])- Primary Cigarette smoker Tobacco use disorder Severe claudication ([facility])- Primary Cigarette smoker Tobacco use disorder Bilateral carotid artery stenosis Occlusion and stenosis of carotid artery without mention of cerebral infarction documented in this encounter [facility]* Diagnosis PAD (peripheral artery disease) ([facility])- Primary Unspecified peripheral vascular disease Claudication ([facility]) Unspecified peripheral vascular disease Pain and swelling of lower extremity, unspecified laterality documented in this encounter [facility]* Diagnosis Infrarenal abdominal aortic aneurysm (AAA) without rupture ([facility])- Primary Intermittent claudication ([facility]) Unspecified peripheral vascular disease documented in this encounter [facility]* Diagnosis Pain and swelling of lower extremity, unspecified laterality- Primary Claudication ([facility]) Unspecified peripheral vascular disease Infrarenal abdominal aortic aneurysm (AAA) without rupture ([facility]) documented in this encounter [facility]* Diagnosis Severe claudication ([facility]-HCC) Cigarette smoker Tobacco use disorder documented in this encounter [facility]* Diagnosis Severe claudication ([facility])- Primary Cigarette smoker Tobacco use disorder [facility] on filedocumented in this encounter [facility] System[facility]ructionsNot on filedocumented in this encounter [facility] Summary Purpose Family History No Family History Records FoundNo Family History Records Found Advance Directives No Advanced Directives Records FoundNo Advanced Directives Records Found Reason for Referral Specialty Diagnoses / Procedures Referred By Elijah lind Referred To Contact Diagnoses PAD (peripheral artery disease) ([facility]) Claudication ([facility]) Pain and swelling of lower extremity, unspecified laterality Procedures Vas venous duplex lwr bilateral Murray Pearson MD [address], [address] [address] Phone: Referral ID Status Reason Start Date Expiration Date V isits Requested Visits Authorized [id number] Pending Review 10/10/2023 10/09/2024 1 1 Specialty Diagnoses / Procedures Referred By Elijah t Referred To Contact Diagnoses PAD (peripheral artery disease) ([facility]) Claudication ([facility]) Pain and swelling of lower extremity, unspecified laterality Procedures Vas art doppler lwr bilat mult lev/PVR Murray Peasron MD [address], [address] [address] Phone: Referral ID Status Reason Start Date Expiration Date V isits Requested Visits Authorized [id number] Pending Review 10/10/2023 10/09/2024 1 1 Specialty Diagnoses / Procedures Referred By Contac t Referred To Contact Diagnoses Infrarenal abdominal aortic aneurysm (AAA) without rupture ([facility]) Intermittent claudication ([facility]) Procedures Vas venous duplex lwr bilateral Murray Pearson MD [address], [address] [address] Referral ID Status Reason Start Date Expiration Date V isits Requested Visits Authorized [id number] Pending Review 03/20/2024 03/20/2025 1 1 Specialty Diagnoses / Procedures Referred By Contac t Referred To Contact Diagnoses Pain and swelling of lower extremity, unspecified laterality Claudication ([facility]) Infrarenal abdominal aortic aneurysm (AAA) without rupture ([facility]) Procedures Vas venous duplex lwr bilateral Murray Pearson MD [address], [address] [address] Referral ID Status Reason Start Date Expiration Date V isits Requested Visits Authorized [id number] Pending Review 04/04/2024 04/04/2025 1 1 Additional Source Comments (unrecognized sect ion and content) No Status Records FoundNo Status Records Found INFORMATION SOURCE (unrecogn ized section and content) DATE CREATED AUTHOR 03/19/2022 [facility] DATE CREATED AUTHOR AUTHOR'S ORGANIZ ATION 04/15/2024 [facility] Reason for Visit (unrecogniz ed section and content) Reason Comments *Severe claudication 6 month follow up NO testing Bilateral lower legs pain with walking long distances Reason Comments Follow-up 6 week follow up wit h no testing. Reason Comments test result follow up Post-op Peripheral Arterial Bypass Care Teams (unrecognized sec tion and content) [employer] Relationship Specialty Start Date End Date Daisy Chávez MD PCP - General Family Medicine 06/04/23 [employer] Relationship Specialty Start Date End Date Daisy Chávez MD [address] [place] [address] PCP - General Family Medicine 06/04/23 [employer] Relationship Specialty Start Date End Date Daisy Chávez MD [facility] [place] [address] PCP - General Family Medicine 06/04/23 [employer] Relationship Specialty Start Date End Date Daisy Chávez MD [address] [place] [id number] PCP - General Family Medicine 06/04/23 [employer] Relationship Specialty Start Date End Date Daisy Chávez MD [address] [place] [id number] PCP - General Family Medicine 06/04/23 [employer] Relationship Specialty Start Date End Date Daisy Chávez MD [address] [place] [phone] PCP - General Family Medicine 06/04/23 FOR RECORDS PERTAINING TO PATIENTS WHO ARE OR HAVE BEEN ENROLLED IN A CHEMICAL DEPENDENCY/SUBSTANCEABUSE PROGRAM, SOME INFORMATION MAY BE OMITTED. This clinical summary was aggregated from multiple sources. Caution should be exercised in using it in the provision of clinical care. This summary normalizes information from multiple sources, and as a consequence, information in this document may materially change the coding, format and clinical context of patient data. In addition, data may be omitted in some cases. CLINICAL DECISIONS SHOULD BE BASED ON THE PRIMARY CLINICAL RECORDS. [facility] [employer] [facility]. provides no warranty or guarantee of the accuracy or completeness of information in this document.
--- NOTE | 2025-04-11 09:00 | CA_ITS ---
[facility] Test Date: 2025-04-11 Pat Name: JOSH ROB Department: Room: - Gender: Male [employer] K[employer]: : 1965 Requested By: [id number] Order Number: [id number] Reading MD: WANDY ALVARADO M.D. Interpretive Statements Summary of the findings: Right leg: ZACK= 0.75; TBI= 0.43. Doppler waveforms demonstrate monophasic flow at the posterior tibial and dorsalis pedis arteries. Left leg: ZACK= 0.7; TBI= 0.36. Doppler waveforms demonstrate monophasic flow at the posterior tibial and dorsalis pedis arteries. Segmental pressures: Segmental pressures indicate significant right inflow disease and significant left femoropopliteal disease. Pulse volume recordings: PVRs at the high thigh, below knee, and ankle levels show dampened waveforms. Conclusion: Right and left ankle-brachial indices are suggestive of abnormal reduced overall arterial flow at rest. Toe-brachial indices are suggestive of PAD. Segmental pressures show segmental disease (right inflow and left femoropopliteal). Pulse volume recordings indicate reduced overall resting arterial flow. The study shows evidence of PAD with reduced overall arterial flow at rest. Electronically Signed On 04-11-2025 20:08:40 EDT by WANDY ALVARADO M.D.
== END 2025-04-11 08:43 | disposition home or self-care (01) ==
LOC: US 08:42
PROVIDERS: PCP Family Medicine; Visit Provider Student in an Organized Health Care Education/Training Program
DX: I65.23 Occlusion and stenosis of bilateral carotid arteries (principal); F17.210 Nicotine dependence, cigarettes, uncomplicated; I73.9 Peripheral vascular disease, unspecified
CPT/HCPCS: 93880; 93923